=== PATIENT | male | born 2000 | race Caucasian/White ===

== ENCOUNTER 2021-01-03 21:23 | Emergency (ER) | payer SELFPAY ==
[2021-01-03 21:30] VITALS: BP 130/70; PULSE 87; RESP 16; TEMP 37.5; O2SAT 97
--- NOTE | 2021-01-03 21:30 | DI.RAD_ITS ---
Exam(s) XR ANKLE RT COMPLETE EXAM: XR ANKLE RT COMPLETE CLINICAL HISTORY: s/p twisting injury, r/o fx lateral malleolus TECHNIQUE: COMPARISON: No exams were available for comparison FINDINGS: Three views were obtained. The ankle mortise appears well maintained. There is no evidence of acute fracture or dislocation. IMPRESSION: RADIATION DOSE DELIVERED: Total DLP
--- NOTE | 2021-01-03 21:37 | W.ED.GENAD ---
Discharge Plan Disposition Patient Disposition: HOME Condition: Stable Discharge Details Clinical Impression: Right ankle sprain Primary Care Provider: Miguel Reza ED Provider: Lo Castillo Home Meds and New Rx's Prescriptions: Continued levetiracetam 500 mg tablet 750 mg PO BID RF: 0 Discharge Instructions Instructions: Ankle Sprain (ED) Additional Instructions: Rest, ice, and elevate the affected area as much as possible. Alternate tylenol and motrin as needed and directed for pain. Follow-up with your primary care doctor in 1 week as needed and for referral to orthopedics if your symptoms do not improve or worsen. Return to the emergency department with any worsening or new concerning symptoms. Referrals: Ayan Todd MD [ [facility] STAFF PHYSICIAN] - Discharge Data Discharge Physician: Lo Castillo Medical Decision Making 20-year-old male presents with right ankle pain after twisting his ankle while riding his skateboard tonight. He has moderate edema and tenderness to his right lateral malleolus. Right foot normal to inspection. There is no deformity. He is neurovascularly intact. Patient referred for x-ray which noted soft tissue swelling but no fracture. Patient placed in an ankle stirrup splint and given crutches. Instructed on importance of RICE. He was given orthopedic follow-up information if needed. Usual and customary return precautions given prior to discharge. Medical Records Medical records reviewed: Yes I reviewed the patient's medical records. Imaging Data Radiologic Study: Radiologist's impression: XR Right Ankle Exam date and time: 01/03/2021 9:40 PM Age: 20 years old Clinical indication: Pain; Ankle; Right; Patient HX: S/P twisting injury, R/O FX lateral malleolus TECHNIQUE: Imaging protocol: XR Right ankle. Views: 3 or more views. COMPARISON: SOFT TISSUE UPPER/LOWER EXT US ([id number]) 01/14/2015 3:11 PM FINDINGS: Bones/joints: No evidence of acute fracture or dislocation. Soft tissues: Mild soft tissue swelling over the lateral malleolus. IMPRESSION: 1. No evidence of acute fracture or dislocation. 2. Mild soft tissue swelling over the lateral malleolus. HPI General Mode of arrival: ambulatory. Date/Time Provider Initiated Documentation: 01/03/21 21:37. Limitations to Documentation: no limitations. Information obtained by: patient. HPI Narrative: Patient is a 20-year-old male who presents to the ED with a complaint of right ankle pain after twisting his ankle while skateboarding tonight. Patient states he felt a pop and sudden onset of pain in his right lateral ankle. He has not taken any medication for pain. He denies any injury to his right hip, right knee or right foot. He states he is having difficulty ambulating due to the pain. Related Data Home Medications Medication Instructions Recorded Confirmed levetiracetam 750 mg PO BID 01/03/21 01/03/21 Allergies Allergy/AdvReac Type Severity Reaction Status Date / Time No Known Allergies Allergy Unverified 01/03/21 21:34 General Stated Complaint: Orthopedic ELENI: 4 Review of Systems All systems reviewed & are unremarkable except as noted in HPI and below Integumentary/Breasts Skin/Breast: Denies lesions and Denies rash [facility] Medical History (Updated 01/03/21 @ 22:11 by Lo Castillo DO) ADHD (attention deficit hyperactivity disorder) problems with focus at school- trials with stimulants, atomoxetine found to be helpful Seizure disorder (~02/2016) found at home- confused, contusion of lip, nose- [facility] [place]- mri normal, eeg - probably normal- placed on meds strong fh of seizures Surgical History (Updated 06/06/16 @ 10:56 by Miguel Reza MD) Circumcision Family History Mother Alcohol abuse Mental disorder Father Healthy adult on routine physical examination Sister Seizure disorder Grandmother Seizure disorder Maternal Aunt Seizure disorder Maternal Aunt Seizure disorder Social History Smoking/Tobacco Use Status: Current every day Tobacco Type: smokeless tobacco Smoking risk assessment performed?: Yes Alcohol Intake: current Alcohol Intake frequency: holidays/special occasions only Drug use: Daily Substance use type: marijuana Do you feel safe at home: Yes Do you feel safe in your relationship?: Yes Exam Const General: cooperative, healthy appearing and no acute distress HENMT Head: normal to inspection Mouth: oral mucosae normal Eyes General: appearance normal, both eyes and all related structures Neck Neck: normal visual inspection Resp Effort & Inspection: normal respiratory effort and able to speak in complete sentences Cardio Rate: regular rate Skin General skin exam: no rashes or lesions noted Neuro General: patient alert, patient awake and patient oriented x3 Motor: muscle tone normal throughout Extrem Other: Mild ecchymosis and moderate edema R lateral malleolus. Tenderness to palpation to right anterior and inferior lateral malleolus. Right medial malleolus nontender without edema or ecchymosis. No right fifth metatarsal tenderness. No deformity. Right DP/PT pulses intact. Psych Appearance: grossly normal Affect: normal affect Course Vital Signs Vital signs: Vital Signs Temperature 99.5 F 01/03/21 21:30 Pulse 87 01/03/21 21:30 Respiratory Rate 16 01/03/21 21:30 Blood Pressure 130/70 01/03/21 21:30 Pulse Oximetry 97 01/03/21 21:30 Temperature 99.5 F 01/03/21 21:30 Temperature Source Oral 01/03/21 21:30 Pulse 87 01/03/21 21:30 Respiratory Rate 16 01/03/21 21:30 Respiratory Effort Non-Labored 01/03/21 21:34 Blood Pressure 130/70 01/03/21 21:30 Blood Pressure Position Sitting 01/03/21 21:30 Pulse Oximetry 97 01/03/21 21:30 Oxygen Delivery Method Room Air 01/03/21 21:30 Oxygen Flow Rate 0 01/03/21 21:30 Pain Level 2 01/03/21 21:36
[2021-01-03] MEDS: Ibuprofen 600 MG TAB PO (21:44)
--- NOTE | 2021-01-03 22:05 | DI.VRAD_ITS ---
PROCEDURE INFORMATION: Exam: XR Right Ankle Exam date and time: 01/03/2021 9:40 PM Age: 20 years old Clinical indication: Pain; Ankle; Right; Patient HX: S/P twisting injury, R/O FX lateral malleolus TECHNIQUE: Imaging protocol: XR Right ankle. Views: 3 or more views. COMPARISON: SOFT TISSUE UPPER/LOWER EXT US ([id number]) 01/14/2015 3:11 PM FINDINGS: Bones/joints: No evidence of acute fracture or dislocation. Soft tissues: Mild soft tissue swelling over the lateral malleolus. IMPRESSION: 1. No evidence of acute fracture or dislocation. 2. Mild soft tissue swelling over the lateral malleolus. Dictated and Authenticated by: Dani Giordano MD. Ordering:GENARO Blanchard MD
== END 2021-01-03 22:45 | disposition home or self-care (01) ==
PROVIDERS: Emergency Provider Physician Assistant; PCP Pediatrics
DX: S93.491A Sprain of other ligament of right ankle, initial encounter (principal); X50.1XXA Overexertion from prolonged static or awkward postures, initial encounter
CPT/HCPCS: 29515; 99283; 73610